=== PATIENT | female | born 1985 | race Hispanic/Latino ===

== ENCOUNTER 2017-12-21 06:47 | Emergency (ER) | payer BC ==
[~2017-12-21] VITALS: Ht 162.6 cm; Wt 84.0 kg
[~2017-12-21 06:47] MED LIST: BACTRIM DS1 TAB PO; CIPROFLOXACN500 MG PO; DOXYCYC MONO100 M2 PO; LORTAB 1010 MG PO; ZOFRAN4 MG/TAB PO
[2017-12-21 07:46] LABS: HEMOGLOBIN 15.9 g/dl (12.0-16.0); IMMATURE GRANULOCYTES 0.3 % (0.0-1.0); MEAN CELL VOLUME 87.3 fL CALC (80.0-100.0); MEAN CORPUSCULAR HGB 28.3 pG CALC (26.0-32.0); MEAN CORPUSCULAR HGB CONC 32.4 g/L CALC (32.0-36.0); NEUT# 13.12 thou/uL (2.00-7.15); RED BLOOD COUNT 5.61 mill/uL (4.20-5.60); RED CELL DISTRI WIDTH 12.8 % (11.5-15.5)
[2017-12-21] MEDS ORDERED: METOPROL TAR25 MG PO (07:52)
[2017-12-21 08:14] LABS: ALBUMIN 4.9 g/dL (3.2-5.0); ALKALINE PHOSPHATASE 97 u/l (38-126); AMYLASE 83 u/l (30-110); ANION GAP 22 (6-22 (CALC)); BILIRUBIN, TOTAL 0.7 mg/dL (0.0-1.4); BUN 21 mg/dL (7-17); BUN/CREATININE RATIO 29 (12-20 (CALC)); CARBON DIOXIDE 23 mmol/l (22-30); CHLORIDE 105 mmol/l (95-108); CREATININE 0.7 mg/dL (0.5-1.0); GFR > 60 ML/MIN (>=60 (CALC)); GFR FOR AFR.AMER. > 60 ML/MIN (>=60 (CALC)); LIPASE 115 u/l (23-300); SGOT/AST 35 u/l (14-36); SGPT/ALT 45 u/l (9-52); SODIUM 145 mmol/l (137-146); TOTAL PROTEIN 8.8 g/dL (6.3-8.2)
[2017-12-21 08:18] LABS: POTASSIUM 4.6 mmol/l (3.5-5.1)
[2017-12-21 08:25] LABS: MYOGLOBIN 15 ng/mL (0 - 62)
[2017-12-21 10:36] LABS: URINE BILIRUBIN - DIPSTICK NEGATIVE (NEGATIVE); URINE BLOOD DIPSTICK NEGATIVE (NEGATIVE); URINE COLOR YELLOW; URINE GLUCOSE - DIPSTICK NEGATIVE (NEGATIVE); URINE KETONE NEGATIVE (NEGATIVE); URINE LEUK ESTERASE NEGATIVE (NEGATIVE); URINE NITRITE - DIPSTICK NEGATIVE (Negative); URINE PH 6.5 (4.5-8.0); URINE PROTEIN - DIPSTICK NEGATIVE (NEG-TRACE); URINE UROBILINOGEN - DIPSTICK 0.2 E.U./dL (0.2)
[2017-12-21 10:41] LABS: URINE CLARITY CLEAR
[2017-12-21 14:00] LABS: C. DIFFICILE TOXIN A&B NEGATIVE (NEGATIVE)
[2017-12-21] MEDS ORDERED: ZITHROMAX250 MG PO (14:05)
[2017-12-21] MEDS ORDERED: ZOFRAN ODT4 MG PO (14:05)
[2017-12-21] MEDS ORDERED: ULTRAM50 M1 PO (14:05)
[2017-12-21 14:25] VITALS: BP 100/63
== END 2017-12-21 14:30 | disposition home or self-care (01) | DRG 392 ==
LOC: ED 06:47
PROVIDERS: Emergency Medicine
DX: K52.9 Noninfective gastroenteritis and colitis, unspecified (principal)
CPT/HCPCS: J1956; Q9967

== ENCOUNTER 2023-03-13 20:17 | Emergency (ER) | payer OTHER ==
[~2023-03-13 20:17] MED LIST changes: +METOPROL TAR25 MG PO; +ULTRAM50 M1 PO; +ZITHROMAX250 MG PO; +ZOFRAN ODT4 MG PO
== END 2023-03-13 20:58 | disposition left against medical advice (07) | DRG 951 ==
LOC: ED 20:17 → LWOBS 20:58
DX: Z53.21 Procedure and treatment not carried out due to patient leaving prior to being seen by health care provider (principal)